=== PATIENT | female | born 1960 | race Caucasian/White ===

== ENCOUNTER → 2017-10-08 17:58 | Outpatient (CLI) | payer OTHER, SELFPAY | PROVIDERS: Family Provider Family Medicine; PCP Family Medicine; Visit Provider Family Medicine | DX: R30.0 Dysuria (principal) | CPT/HCPCS: 87086 ==

== ENCOUNTER → 2018-02-14 14:14 | Outpatient (CLI) | payer OTHER, SELFPAY ==
--- OUTSIDE RECORDS SUMMARY | 2018-04-02 11:32 | XMS RPT_ITS ---
:1960 Author Organization OHIP Care Team Providers Name Role Phone Mehki Dunlap Attending Unavailable Mekhi Dunlap Referring Unavailable Mekhi Dunlap Primary Care Unavailable Mekhi Dunlap Attending Unavailable Mekhi Dunlap Primary Care Unavailable PROBLEMS PROBLEMS DATE TYPE CONDITION / ATTENDING STATUS SOURCE CODE 02/14/2018 Unknown R30.0 - Dysuria Germán, Active Isidro / R30.0(ICD-10) [facility] Repository 10/08/2017 Unknown 788.1 - Dysuria [facility], Active Isidro / 788.1(ICD-9) [facility] Repository PROCEDURES PROCEDURES No Procedure Records FoundRESULTS RESULTS Observed: 02/14/2018 Status: F Source: ISIDRO CULTURE, URINE 12:00 PM [facility] REPOSITORY Urine Culture Culture exhibits no growth. Performed By: #### [id number] #### [facility] [address] [place], [address] Observed: 10/08/2017 Status: F Source: ISIDRO CULTURE, URINE 11:30 AM [facility] REPOSITORY Order Date: 10/08/17 Order Info: 630-4 - CUUR Urine Culture Culture exhibits no growth. Performed By: #### [id number] #### [facility] [address] [place], [address] ALLERGIES ALLERGIES No Allergies Records FoundENCOUNTERS ENCOUNTERS ADMIT/DISCHARGE ACCOUNT ADMITTING ENCOUNTER LOCATION SOURCE NUMBER CLASS 02/14/2018 [id number] Ambulatory [address] ing:[facility]SPEC Repository 10/08/2017 [id number] [place] [facility] ing:[facility]SPEC Repository PAYERS PAYERS ENCOUNTER GUARANTOR PAYER SUBSCRIBER SOURCE 02/14/2018 ZANDRA Quan Primary MACARIODESTINEY Avelina CervantesIsidromeeta [id number] [place] Insurance:MEDICAL BEACONDOB: [facility] [id number] [address]Rme: [phone]) Number: Repository [phone] () [id number] Date:1823-92-27AH [address] [place] [id number]: 02/14/2018 Secondary NOT GIVENUNK Isidro Insurance:SELF PAY [facility] Number: Effective Repository Date:2018-02-14 10/08/2017 ZANDRA Quan Primary MACARIODESTINEY Avelina Sylvester [id number] [place] Insurance:MEDICAL BEACONDOB: [facility] [id number] [id number]: [phone]) Number: Repository [phone] () [id number] Date:[id number] [address] [place] [id number]: 10/08/2017 Secondary NOT GIVENUNK Isidro Insurance:SELF PAY [facility] Number: Effective Repository Date:2017-10-08
== END ==
PROVIDERS: Family Provider Family Medicine; PCP Family Medicine; Referring Provider Family Medicine; Visit Provider Family Medicine
DX: R30.0 Dysuria (principal)
CPT/HCPCS: 87086

== ENCOUNTER → 2020-05-24 11:23 | Outpatient (CLI) | payer SELFPAY ==
[2020-05-24 15:11] LABS: Absolute Lymphocyte Count 1.45 X10^3/uL (0.83-4.51); Absolute Neutrophil Count 4.7 X10^3/uL (2.0-7.7); Basophil# 0.03 X10^3/uL; Basophil% 0.5 % (0-1); Eosinophil# 0.02 X10^3/uL; Eosinophils% 0.3 % (0-5); Hematocrit 44.2 % (37-47); Hemoglobin 14.3 g/dL (12.0-15.0); Lymphocyte # 1.45 X10^3/ul (4.0); Mean Corp Hgb Conc 32.4 g/dL (32-36); Mean Corpuscular Hgb 30.8 pg (27.0-32.0); Mean Corpuscular Volume 95.1 fL (81-99); Mean Platelet Vol. 10.6 fl (6.2-12.0); Monocyte# 0.41 X10^3/uL; Monocyte% 6.2 % (0-10); NRBC Flagged by Analyzer 0 % (0-5); Neutrophil # 4.66 X10^3/uL (2.7-7.7); Neutrophil % 70.5 % (47-70); Platelet Count 274 K/mm3 (150-450); RBC Distribution Width CV 12.4 % (11.6-14.6); RBC Distribution Width SD 42.9 fl (35.1-43.9); Red Blood Count 4.65 M/mm3 (4.2-5.4); White Blood Count 6.6 K/mm3 (4.4-11.0)
[2020-05-24 15:28] LABS: AST(SGOT) 14 U/L (15-37); Alanine Aminotransfer ALT/SGPT 27 U/L (13-56); Albumin, Serum 3.7 g/dL (3.2-5.0); Alkaline Phosphatase 87 U/L (45-117); Anion Gap 6 (5-15); BUN 19 mg/dL (7-18); BUN/Creat Ratio 36.4 RATIO (10-20); Chloride 103 mmol/L (98-107); Creatinine, Serum 0.52 mg/dL (0.55-1.02); EST Glomerular Filtration Rate 127 mL/min (>60); Est Glom Filt Rate - Afr Amer 154 mL/min (>60); Globulin 3.8 g/dL (2.2-4.2); Glucose 81 mg/dL (74-106); Potassium 3.9 mmol/L (3.5-5.1); Protein, Total 7.5 g/dL (6.4-8.2); Sodium Level 140 mmol/L (136-145)
[2020-05-24 15:37] LABS: D-Dimer Quantitative (DVT/PE) 0.39 FEU/ug/m (0.27-0.49)
== END ==
PROVIDERS: PCP Family Medicine; Referring Provider Family Medicine; Visit Provider Family Medicine
DX: R07.9 Chest pain, unspecified (principal)
CPT/HCPCS: 36415; 80053; 85025; 85379

== ENCOUNTER → 2020-06-01 12:18 | Outpatient (CLI) | payer SELFPAY ==
--- NOTE | 2020-06-01 12:29 | RAD_ITS ---
HISTORY: DYSPNEA ADDITIONAL HISTORY: None provided. COMPARISON: None EXAMINATION/TECHNIQUE: XR Chest 2 Views Number of images including paperwork: 2 FINDINGS: LUNGS AND PLEURA: No consolidation, mass or pleural effusion. CARDIAC SILHOUETTE: Unremarkable. MEDIASTINUM AND SENDY: Unremarkable. UPPER ABDOMEN: Unremarkable. SKELETON AND SOFT TISSUES: No acute findings. OTHER DEVICES AND HARDWARE: None. RAD/Chest PA and Lateral IMPRESSION: No acute cardiopulmonary abnormality. at 1003 Reported and signed by: Irma Hendrix MD Electronically Signed: Irma Hendrix MD at 10:03 EDT Tel , Service support ,
== END ==
LOC: MTLAB 12:19 → MTRAD 12:20
PROVIDERS: PCP Family Medicine; Referring Provider Family Medicine; Visit Provider Family Medicine
DX: R06.00 Dyspnea, unspecified (principal)
CPT/HCPCS: 71046

== ENCOUNTER → 2020-06-03 08:39 | Outpatient (CLI) | payer SELFPAY ==
[2020-06-03 10:29] LABS: Erythrocyte Sedimentation Rate 4 mm/hr (0-30)
[2020-06-03 10:38] LABS: Cholesterol 245 mg/dL (200); High Density Lipoprotein 55 mg/dL; Iron 109 ug/dL (50-170); Triglycerides 88 mg/dL; Very Low Density Lipoprotein 18 mg/dL (5-40); Vitamin B12 1363 pg/mL (211-911); Vitamin D,25 Hydroxy 52.9 ng/mL
[2020-06-03 10:41] LABS: Hemoglobin A1c 5.4 % (3.8-5.6)
== END ==
PROVIDERS: PCP Family Medicine; Referring Provider Family Medicine; Visit Provider Family Medicine
DX: R53.83 Other fatigue (principal); Z86.73 Personal history of transient ischemic attack (TIA), and cerebral infarction without residual deficits
CPT/HCPCS: 36415; 80061; 82306; 82533; 82607; 83036; 83540; 85652

== ENCOUNTER 2021-04-13 08:24 | Outpatient (CLI) | payer SELFPAY ==
[2021-04-13 10:28] LABS: Erythrocyte Sedimentation Rate 13 mm/hr (0-30)
[2021-04-13 10:31] LABS: Hematocrit 43.5 % (37-47); Hemoglobin 14.3 g/dL (12.0-15.0); Mean Corp Hgb Conc 32.9 g/dL (32-36); Mean Corpuscular Hgb 30.5 pg (27.0-32.0); Mean Corpuscular Volume 92.8 fL (81-99); Mean Platelet Vol. 10.6 fl (6.2-12.0); Platelet Count 248 K/mm3 (150-450); RBC Distribution Width CV 12.3 % (11.6-14.6); RBC Distribution Width SD 41.7 fl (35.1-43.9); Red Blood Count 4.69 M/mm3 (4.2-5.4); White Blood Count 4.6 K/mm3 (4.4-11.0)
[2021-04-13 11:20] LABS: Cholesterol 221 mg/dL (200); Ferritin 92 ng/mL (8-252); High Density Lipoprotein 45 mg/dL; Thyroid Stim Hormone (TSH) 2.79 uIU/mL (0.358-3.74); Triglycerides 89 mg/dL; Very Low Density Lipoprotein 18 mg/dL (5-40)
[2021-04-13 14:05] LABS: Vitamin B12 606 pg/mL (211-911)
[2021-04-14 10:08] LABS: MG Sendout 2.3 mg/dL (1.6-2.3)
[2021-04-14 16:56] LABS: ANTINUCLEAR ANTIBODIES DIRECT Negative (Negative)
== END 2021-04-13 23:59 | disposition home or self-care (01) ==
PROVIDERS: PCP Family Medicine; Referring Provider Family Medicine; Visit Provider Family Medicine
DX: E78.5 Hyperlipidemia, unspecified (principal); R20.2 Paresthesia of skin
CPT/HCPCS: 36415; 80061; 82607; 82728; 83735; 84443; 85027; 85652; 86038

== ENCOUNTER → 2023-09-07 | Outpatient (CLI) | payer SELFPAY ==
--- NOTE | 2023-09-07 14:19 | BI_ITS ---
MAMMOGRAPHY - BILATERAL SCREENING 3-D TOMOSYNTHESIS REASON FOR EXAM: Female, 62 years old. SCREENING PERTINENT HISTORY: No significant family history. TECHNIQUE: 2-D mammograms and 3-D Tomosynthesis of the breast (s) were performed. CAD was performed. COMPARISON: 08/19/2016 FINDINGS: The breast composition is Extermely dense tissue. Scattered benign calcifications are seen. 2 cm oval obscured equal density mass in the lower inner quadrant right breast ultrasound recommended for further evaluation. 3 cm oval obscured equal density mass in the lower inner quadrant left breast and ultrasound is recommended for further evaluation. No suspicious calcifications.. No architectural distortion is identified. There is no skin thickening or retraction. BI/DIAG MAMM W/CAD, BILAT IMPRESSION: Bilateral breast masses and correlation with ultrasound is recommended. Routine yearly mammograms recommended. ASSESSMENT CATEGORY: BIRADS Category 0: Incomplete. Need additional imaging evaluation as above. A letter regarding these results will be sent to the patient by the facility within 30 days. FOLLOW UP RECOMMENDATION: Ultrasound Recommended. (I) Approximately 10% of breast cancers are not detected by mammography. A normal mammogram should not delay biopsy of a clinically suspicious abnormality. Electronically Signed: Fahad George MD at 15:18 EDT ,
--- NOTE | 2023-09-07 14:20 | US_ITS ---
STUDY: ULTRASOUND BREAST - LEFT REASON FOR EXAM: Female, 62 years old. Palpable mass TECHNIQUE: Axial and longitudinal images of the LEFT breast were performed with a high resolution ultrasound transducer. # OF IMAGES: 76 COMPARISON: Diagnostic mammogram earlier today FINDINGS: LEFT Breast: Heterogeneous background echotexture. Multiple longitudinal and transverse ultrasound images of the retroareolar left breast confirm a 4.6 cm septated anechoic mass with posterior enhancement consistent with a cyst corresponding to the palpable abnormality. There is surrounding dense breast parenchyma with other smaller cysts consistent with fibrocystic change.: US/Breast Limited Unilateral IMPRESSION: Ultrasound confirms fibrocystic change with a 4.6 cm septated cyst corresponding to the palpable abnormality. ASSESSMENT CATEGORY: BIRADS Category 2: Benign. A letter regarding these results will be sent to the patient by the facility within 30 days. Electronically Signed: Fahad George MD at 17:05 EDT ,
--- NOTE | 2023-09-07 15:22 | US_ITS ---
STUDY: ULTRASOUND BREAST - RIGHT REASON FOR EXAM: Female, 62 years old. Abnormal diagnostic mammogram. TECHNIQUE: Axial and longitudinal images of the RIGHT breast were performed with a high resolution ultrasound transducer. # OF IMAGES: 29 COMPARISON: Diagnostic mammogram earlier today FINDINGS: RIGHT Breast: Heterogeneous background echotexture. Multiple longitudinal and transverse ultrasound images of the retroareolar right breast confirm a 2 cm oval parallel circumscribed anechoic mass with posterior enhancement consistent with a cyst corresponding to the abnormality seen on mammography.: US/Breast Limited Unilateral IMPRESSION: Ultrasound confirms a 2 cm cyst corresponding to the mass mammography. ASSESSMENT CATEGORY: BIRADS Category 2: Benign. A letter regarding these results will be sent to the patient by the facility within 30 days. Electronically Signed: Fahad George MD at 17:06 EDT ,
== END | disposition home or self-care (01) ==
LOC: OPBI 14:17
PROVIDERS: PCP Family Medicine; Referring Provider Family Medicine; Visit Provider Family Medicine
DX: N63.0 Unspecified lump in unspecified breast (principal); R92.30 Dense breasts, unspecified; R92.8 Other abnormal and inconclusive findings on diagnostic imaging of breast
CPT/HCPCS: 76642; 77062; 77066; G0279

== ENCOUNTER → 2024-12-02 | Outpatient (CLI) | payer MEDICARE, OTHER, SELFPAY ==
[2024-12-02 14:04] LABS: Anion Gap 12 (5-15); BUN 11 mg/dL (4-19); BUN/Creat Ratio 21.5 RATIO (10-20); Calcium,Total 9.1 mg/dL (7.6-11.0); Carbon Dioxide 26.6 mmol/L (21.0-32.0); Chloride 100 mmol/L (98-108); Cholesterol 224 mg/dL (<=200); Glucose 82 mg/dL (70-99); Low Density Lipoprotein Calc. 154 mg/dL; Potassium 3.8 mmol/L (3.3-5.1); Triglycerides 113 mg/dL; Very Low Density Lipoprotein 23 mg/dL (5-40); Vitamin D,25 Hydroxy 39.8 ng/mL (30-100); cholesterol:hdl ratio screen 4.71
== END | disposition home or self-care (01) ==
LOC: MTLAB 09:41
PROVIDERS: PCP Family Medicine; Referring Provider Family Medicine; Visit Provider Family Medicine
DX: E78.5 Hyperlipidemia, unspecified (principal); E55.9 Vitamin D deficiency, unspecified
CPT/HCPCS: 36415; 80048; 80061; 82306; 84443

== ENCOUNTER → 2025-01-06 | Outpatient (CLI) | payer MEDICARE, OTHER, SELFPAY ==
--- NOTE | 2025-01-06 08:32 | BD_ITS ---
PROCEDURE: DEXA BONE DENSITY STUDY 01/06/2025 REASON FOR EXAM: F, age 64 y/o . Postmenopausal. TECHNIQUE: Procedure Code: BDDBD Modality: DX Procedure: DEXA BONE DENSITY STUDY COMPARISON: None FINDINGS: BMD and T-SCORES Lumbar spine: 1.002 g/cm2, T-score -0.1 Levels: L1 through L4 Left femoral neck: 0.711 g/cm2, T-score -1.2 Femoral neck comparison data not recommended for monitoring change. Left total hip: 0.825 g/cm2, T-score -1.0 Right femoral neck: 0.805 g/cm2, T-score -0.4 Femoral neck comparison data not recommended for monitoring change. Right total hip: 0.874 g/cm2, T-score -0.6 The World Health Organization has defined the following categories based on bone density: Normal bone density: T-score equal to or greater than -1.0 Osteopenia: T-score between -1.0 and -2.5 Osteoporosis: T-score equal to or less than -2.5 FRAX (or Comparable) Fracture Risk Assessment: 10 Year Probability of Fracture: Major Osteoporotic Fracture: 16% Hip Fracture: 0.7% (Note: FRAX is not to be reported in setting of normal range bone density, osteoporosis on DEXA, known history of osteoporosis, prior osteoporotic hip or vertebral fracture, or for any patient undergoing pharmacological treatment for bone loss.) The National Osteoporosis Foundation (NOF) recommends pharmacological treatment for patients with a FRAX 10-year risk of 3% or higher for a hip fracture, or 20% or higher for a major osteoporotic fracture, to prevent osteoporosis and reduce fracture risk. The patient does meet the pharmacological treatment recommendations for prevention of osteoporosis. BD/Dexa Bone Density Study IMPRESSION: OSTEOPENIA. Recommend follow-up as clinically warranted. Reading Location: [facility]
--- NOTE | 2025-01-06 08:48 | AAAS_ITS ---
Reason For Study Reason For Study: Screening Aorta Measurements Aorta Doppler Measurements Proximal aorta measures1.94 x 1.90cm. in cross-sectional Peak systolic flow velocities within the proximal aorta axis. measure 119.4 cm/sec. Proximal aorta measures1.91cm. in longitudinal axis. Peak systolic flow velocities within the mid aorta measure Mid aorta measures1.49 x 1.51cm. in cross-sectional axis. 88.6 cm/sec. Mid aorta measures1.50cm. in longitudinal axis. Peak systolic flow velocities within the distal aorta Distal aorta measures1.34 x 1.30cm. in cross-sectional axis.measure 135.7 cm/sec. Distal aorta measures1.38cm. in longitudinal axis. Left Iliac Artery Left iliac artery measures 0.88 x 0.88 cm. in the cross-sectional axis. Left iliac artery measures 0.89 cm. in the longitudinal axis. Peak systolic velocity in the left iliac artery measures 138.1 cm/sec. Right Iliac Artery Right iliac artery measures 0.89 x 0.92 cm. in the cross-sectional axis. Right iliac artery measures 0.90 cm. in the longitudinal axis. Peak systolic velocity in the right iliac artery measures 151.2 cm/sec. Procedure Aorta IVC Iliac vasculature or bypass grafts 75723. Exam performed in department. VL/AAA Screening Interpretation Summary The dimensions of the intra-abdominal aorta are normal, without evidence of ane urysmal dilatation. The iliac arteries also appear normal in caliber bilaterally. The intra-abdominal aorta and iliac arteries appear patent, demonstrating normal, pulsatile arterial flow and normal peak systolic velocities. Ordering Physician: Mekhi Dunlap Referring Physician: Mekhi Dunlap Performed By: Kya Sharp RVT
== END | disposition home or self-care (01) ==
LOC: OPBD 08:22
PROVIDERS: PCP Family Medicine; Referring Provider Family Medicine; Visit Provider Family Medicine
DX: Z13.6 Encounter for screening for cardiovascular disorders (principal); Z78.0 Asymptomatic menopausal state
CPT/HCPCS: 76706; 77080